=== PATIENT | female | born 1980 | race Caucasian/White ===

== ENCOUNTER 2016-11-18 02:58 | Emergency (ER) | payer OTHER ==
[~2016-11-18] VITALS: Ht 165.1 cm; Wt 68.0 kg
[~2016-11-18 02:58] MED LIST: AMPH20TA2 PO; CETI10TA84 PO; EFFSR150 PO; NXM/40 PO
--- NOTE | 2016-11-18 03:35 | EMERGENCY ROOM VISIT NOTE ---
History First contact with patient: 03:00 History of Present Illness The patient is a 36 year old female who presents to the Emergency Room with complaints of inability to concentrate. The patient's coworkers were concerned about her behavior. They felt that she was acting erratically and unable to concentrate. The nursing supervisor [employer] requested that the patient undergo a fit for duty evaluation. The patient admits that she is under some increased stress at home. She did feel as if she was overwhelmed tonight at work and could not keep up with the work load. She denies any alcohol or drug use. She does take Adderall routinely for ADHD. She did take this prior to coming into work but normally takes a second dose around 11 PM once at work. She did not have time to do this. Review of Systems She denies any fever, chills, upper respiratory symptoms, or cough. She denies any dizziness lightheadedness or headaches. She denies any chest pain, shortness of breath, nausea, vomiting, or diaphoresis. She denies any abdominal pain, constipation, diarrhea, or urinary symptoms. All other systems were reviewed and were negative. Past Medical/Surgical History Medical Problems: (1) No chronic problems ADHD Depression Seasonal Allergies Family History No pertinent family history Social History Smoking Status: Current Every Day Smoker Alcohol Use: none Drug Use: none Marital Status: Housing Status: lives with family Occupation Status: employed Current/Historical Medications Scheduled Amphetamine-Dextroamphetamine 20MG (Adderall 20MG), 20 MG PO DAILY Cetirizine (Zyrtec), 10 MG PO DAILY Esomeprazole Magnesium (Nexium), 40 MG PO DAILY Venlafaxine Hcl (Effexor Extended Rel), 225 MG PO DAILY Allergies Coded Allergies: Latex (Verified Allergy, Mild, dermatitis, 12/27/15) Metoclopramide (Verified Allergy, Mild, twitching, 12/27/15) Uncoded Allergies: IVP DYE (Allergy, Unknown, RASH, 12/27/15) Physical Exam Physical Exam Gen.: The patient is tearful on my exam. She was easily able to answer questions. HEENT: Head - normocephalic and atraumatic Pupils are equal, round, and reactive to light. Extraocular eye muscles are intact, and sclera are anicteric. Nose - moist nasal mucosa without discharge. Mouth - moist buccal mucosa. Oropharynx is nonerythematous and there is no tonsillar exudate or edema noted. Neck: Supple; no cervical lymphadenopathy. Heart: Regular rate and rhythm. There is a normal S1 and S2 with no murmurs, clicks, or gallops appreciated. Lungs: Clear to auscultation bilaterally with no wheezes, rales, or rhonchi. Abdomen: Soft, completely nontender, nondistended, with good bowel sounds. There are no palpable pulsatile masses or hepatosplenomegaly. There is no guarding, rigidity, or rebound noted. Extremities: No evidence of cyanosis, clubbing, or edema. There are easily palpable peripheral pulses. Skin: warm and dry with good turgor and no rashes. Medical Decision & Procedures ED Course The patient was evaluated in D-9. A complete history and physical was performed. The nursing supervisor [employer] ordered the appropriate [id number] laboratory testing. The patient was asked to go home and not work any more this evening until she can be further evaluated by employee health. The patient describes no other associated symptoms other than feeling as if she could not keep up with her work load tonight. I spent some time talking to her about supportive friends and family along with the availability of an employee assistance program here at the hospital. She tells me that she does suffer from anxiety and follows with a therapist at [facility]. 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 Coworkers identified some concerns about erratic behavior and inability to concentrate. The nursing supervisor [employer] was notified and requested that the patient have a [id number] test performed here in the emergency department. I assured her that her evaluation would be kept confidential. The patient's mental status seemed appropriate during my evaluation of her. She will follow up through employee health. Impression Primary Impression: Fit for work Departure Information Referrals No Doctor, Assigned (PCP)
[2016-11-18 03:41] VITALS: BP 126/88; PULSE 82; TEMP 36.9; O2SAT 98; Ht 165.1 cm; Wt 68.0 kg
[2016-11-18] MEDS ORDERED: DIAZ2TAB PO (03:46)
== END 2016-11-18 03:51 | disposition home or self-care (01) ==
LOC: C.EDD 03:00
DX: Z02.89 Encounter for other administrative examinations (principal); F90.9 Attention-deficit hyperactivity disorder, unspecified type; F32.9 Major depressive disorder, single episode, unspecified; F17.200 Nicotine dependence, unspecified, uncomplicated